=== PATIENT | male | born 1970 | race Caucasian/White ===

== ENCOUNTER 2023-12-09 14:00 | Outpatient (CLI) | payer MEDICARE, MEDICAID, SELFPAY ==
--- NOTE | 2023-12-09 14:00 | CT_ITS ---
Patient: WESLEY MITCHELL Facility:?[facility] Patient ID:?[id number] Site Patient ID:?[id number]. Site :?[id number] Study:?CT-ST Neck W/ISOVUE 370 79CC-12/09/2023 2:37:39 PM Ordering Physician:NEREIDA Final Report: Indication: Left neck mass. Technique: Contrast-enhanced CT of the neck with multiplanar reconstruction utilizing 79 cc Isovue 370 iodinated intravenous contrast. Comparison: None available. Findings: An enhancing soft tissue mass centered on the left oropharynx and extending to the soft palate measures up to 4.1 cm in AP dimension. No evidence of osseous destruction/erosion. No pterygoid musculature involvement. The lesion encompasses the expected locations of the hyoglossus and styloglossus musculature. There is extensive bilateral heterogeneously enhancing necrotic lymphadenopathy, consistent with metastatic disease, for reference: - enlarged left submandibular lymph node measuring up to 4.5 cm (series 3, image 35) - conglomerate left level IIb lymphadenopathy measuring up to 3.9 cm (series 3, image 25) - subcentimeter left level III lymph node (series 3, image 44) - right level IIa lymph nodes measuring up to 2.7 cm (series 3, image 32) - right level II B lymph node measuring up to 2.2 cm (series 3, image 38) - subcentimeter right level III lymph node (series 3, image 40) - 1.8 cm right level IV lymph node (series 3, image 48) Normal parotid and submandibular glands. Unremarkable thyroid. No suspicious pulmonary nodule. The imaged intracranial structures are within normal limits. No suspicious osseous lesion is identified. Impression: 1. Enhancing mass within the left oropharynx measuring up to 4.1 cm and encompassing the expected location of the hyoglossus and styloglossus muscles. 2. Extensive bilateral necrotic lymphadenopathy as referenced above. 3. 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 Please note that all CT scans at this facility use dose modulation, iterative reconstruction, and/or weight-based dosing when appropriate to reduce radiation dose to as low as reasonably achievable. Dictated by Amador Acosta MD @ 12/10/2023 3:39:04 PM Signed by:?Amador Acosta MD @12/10/2023 3:39:04 PM (Electronic Signature)
== END 2023-12-09 14:01 | disposition home or self-care (01) ==
DX: R22.1 Localized swelling, mass and lump, neck (principal); R22.0 Localized swelling, mass and lump, head
CPT/HCPCS: 70491; Q9967